=== PATIENT | male | born 1950 | race Caucasian/White ===

== ENCOUNTER 2019-02-28 15:10 | Inpatient (IN) | payer MEDICARE, MEDICAID ==
[~2019-02-28] VITALS: Ht 167.6 cm; Wt 72.6 kg
[2019-02-28] MEDS ORDERED: SODIUM CHLORIDE 0.9% 1,000 ML IV ONE (15:39)
[2019-02-28] MEDS ORDERED: ONDANSETRON HCL 4MG/2ML INJ IV STA (15:39)
[2019-02-28] MEDS ORDERED: LEVETIRACETAM 1000MG/100ML 100 ML IV ONE (15:45)
[2019-02-28 17:57] LABS: BASOPHILS % 0.5 % (0.0-2.0); EOSINOPHILS % 4.6 % (0.0-5.0); HEMATOCRIT. 35.8 % (42.0-52.0); HEMOGLOBIN. 11.9 g/dL (14.0-18.0); LYMPHOCYTES % 22.6 % (20.0-50.0); MEAN CORPUSCULAR VOLUME 87.3 fL (80.0-94.0); MEAN PLATELET VOLUME 9.6 fl (7.4-10.4); MONOCYTES % 8.3 % (2.0-8.0); PLATELET 148 x1000/uL (130-400)
[2019-02-28 17:58] LABS: CHLORIDE 108 mEq/L (98-107)
[2019-02-28 18:06] LABS: ETHANOL BLOOD < 10 mg/dL
[2019-02-28 19:35] LABS: CLARITY URINE CLEAR (CLEAR); COLOR URINE YELLOW (YELLOW); KETONES URINE NEGATIVE (NEGATIVE); LEUKOCYTE ESTERASE URINE NEGATIVE (NEGATIVE); NITRITE URINE NEGATIVE (NEGATIVE); OCCULT BLOOD URINE NEGATIVE (NEGATIVE); PROTEIN URINE TRACE (NEGATIVE); SPECIFIC GRAVITY URINE 1.021 (1.005-1.030); UROBILINOGEN URINE 0.2 E.U./dL (0.2-1.0)
[2019-02-28 20:01] LABS: *AMPHETAMINES SCREEN URINE NEGATIVE (NEGATIVE); *BARBITURATES SCREEN URINE NEGATIVE (NEGATIVE); *BENZODIAZEPINES SCREEN URINE NEGATIVE (NEGATIVE); *COCAINE SCREEN URINE NEGATIVE (NEGATIVE); METHADONE URINE SCREEN NEGATIVE (NEGATIVE); OPIATES URINE SCREEN NEGATIVE (NEGATIVE)
[2019-02-28 20:03] LABS: CANNABINOID URINE SCREEN NEGATIVE (NEGATIVE); PHENCYCLIDINE URINE SCREEN NEGATIVE (NEGATIVE)
[2019-02-28 23:00] VITALS: BP 125/63
[2019-02-28] MEDS ORDERED: TOPUD PO (23:47)
[2019-02-28] MEDS ORDERED: CLON-457 PO (23:48)
[2019-02-28] MEDS ORDERED: OLAN5TAB39 PO (23:49)
[2019-02-28 23:50] VITALS: BP 126/63
[2019-02-28] MEDS ORDERED: ZYPREXA IM (23:52)
[2019-02-28] MEDS ORDERED: ZOLP5TAB2 PO (23:53)
[2019-02-28] MEDS ORDERED: LORA1TAB PO (23:53)
[2019-02-28] MEDS ORDERED: PANT40SU PO (23:54)
[2019-02-28] MEDS ORDERED: ASPI-1393 PO (23:55)
[2019-02-28] MEDS ORDERED: AMLO5TAB4 PO (23:57)
[2019-02-28] MEDS ORDERED: METO1TAB41 PO (23:57)
[2019-02-28] MEDS ORDERED: PHENYTOIN PO (23:59)
[2019-03-01] MEDS ORDERED: SENN-23 PO
[2019-03-01] MEDS ORDERED: ZONI100C45 PO (00:01)
[2019-03-01] MEDS ORDERED: ATOR20TA65 PO (00:02)
[2019-03-01] MEDS ORDERED: ACETAMINOPHEN 325MG TABLET PO PRN ×2 (00:30→11:45)
[2019-03-01] MEDS ORDERED: CLONIDINE 0.1MG TABLET PO PRN (00:30)
[2019-03-01 04:00] VITALS: BP 126/63
[2019-03-01] MEDS ORDERED: PANTOPRAZOLE 40MG DR TABLET PO SCH (06:45)
[2019-03-01 08:00] VITALS: BP_SYST 118; BP_SYST 135; BP_DIAS 63; BP_DIAS 85
[2019-03-01] MEDS: ASPIRIN 81MG TABLET PO SCH ×2 (09:00→09:19)
[2019-03-01] MEDS: OLANZAPINE 5MG TABLET PO SCH ×2 (09:00→09:19)
[2019-03-01] MEDS ORDERED: ENOXAPARIN 40MG/0.4ML SYR SUBCUT SCH (09:00)
[2019-03-01] MEDS: SENNOSIDES 8.6MG TABLET PO SCH ×2 (09:00→09:19)
[2019-03-01] MEDS: METOPROLOL TARTRATE 100MG TABLET PO SCH ×2 (09:00→09:19)
[2019-03-01] MEDS: AMLODIPINE 5MG TABLET PO SCH ×2 (09:00→09:20)
[2019-03-01] MEDS: ZONISAMIDE 100MG CAPSULE PO SCH ×2 (09:18→17:00)
[2019-03-01] MEDS: PHENYTOIN SODIUM EXTENDED 100MG CAPSULE PO SCH ×2 (09:19→18:02)
[2019-03-01] MEDS ORDERED: ZYPREXA 5 MG IM SCH (11:45)
[2019-03-01] MEDS ORDERED: HYDROCHLOROTHIAZ PO SCH (11:45)
[2019-03-01] MEDS ORDERED: ASPIRIN 81MG EC TABLET PO SCH (11:45)
[2019-03-01] MEDS ORDERED: ZOLPIDEM TARTRATE 5MG TABLET PO PRN (11:45)
[2019-03-01] MEDS ORDERED: [UNRECOGNIZED DRUG - OTHER] PO SCH (11:45)
[2019-03-01] MEDS ORDERED: MEDICATION NOT ON FORMULARY EA (Pantoprazole Sodium (Protonix) 40 MG) PO SCH (11:45)
[2019-03-01] MEDS ORDERED: AMLODIPINE 5MG TABLET PO SCH (11:45)
[2019-03-01] MEDS ORDERED: ZONISAMIDE 100MG CAPSULE PO SCH (11:45)
[2019-03-01] MEDS ORDERED: PHENYTOIN 100 MG PO SCH (11:45)
[2019-03-01] MEDS ORDERED: MEDICATION NOT ON FORMULARY EA (Clonidine HCl (Clonidine HCl ER) 0.1 MG) PO SCH (11:45)
[2019-03-01] MEDS ORDERED: METOPROLOL SU PO SCH (11:45)
[2019-03-01] MEDS ORDERED: LORAZEPAM 1MG TABLET PO PRN (11:45)
[2019-03-01] MEDS ORDERED: OLANZAPINE 5MG TABLET ODT PO SCH (11:45)
[2019-03-01] MEDS ORDERED: SENNOSIDES/DOCUSATE SOD 8.6/50MG TABLET PO SCH ×2 (11:45→17:00)
[2019-03-01 11:59] VITALS: BP 115/65
[2019-03-01] MEDS ORDERED: OLANZAPINE 10 MG/VIAL IM PRN (12:30)
[2019-03-01] MEDS ORDERED: HYDROCHLOROTHIAZIDE 12.5MG CAPSULE PO SCH ×2 (14:00→17:00)
[2019-03-01 16:00] VITALS: BP 104/60
[2019-03-01 16:39] LABS: CHLORIDE 105 mEq/L (98-107)
[2019-03-01 20:00] VITALS: BP 123/73
[2019-03-01 20:49] LABS: BASOPHILS % 0.6 % (0.0-2.0); EOSINOPHILS % 3.1 % (0.0-5.0); HEMATOCRIT. 36.1 % (42.0-52.0); MEAN CORPUSCULAR HEMOGLOBIN 29.1 pg (28.0-32.0); MEAN CORPUSCULAR VOLUME 87.9 fL (80.0-94.0); NEUTROPHILS % 65.3 % (40.0-76.0); PLATELET 147 x1000/uL (130-400); RED BLOOD CELL COUNT 4.11 mill/uL (4.7-6.1); RED CELL DISTRIBUTION WIDTH 15.7 % (11.6-14.6)
[2019-03-01] MEDS ORDERED: ATORVASTATIN CALCIUM 20MG TABLET PO SCH ×2 (21:00)
[2019-03-01 22:55] VITALS: BP 119/71
[2019-03-02 00:28] VITALS: BP 119/71
== END 2019-03-02 00:32 | DRG 53 ==
LOC: ER 15:10 → EDBEDREQ 20:29 → EDBEDREQTM 20:29 → ENRESERV 20:38 → 5WST 22:23
PROVIDERS: ADMIT Family Medicine; ATTEND Family Medicine
DX: G40.909 Epilepsy, unspecified, not intractable, without status epilepticus (principal); G93.41 Metabolic encephalopathy; E87.8 Other disorders of electrolyte and fluid balance, not elsewhere classified; F03.90 Unspecified dementia, unspecified severity, without behavioral disturbance, psychotic disturbance, mood disturbance, and anxiety; F20.9 Schizophrenia, unspecified; F41.9 Anxiety disorder, unspecified; G47.00 Insomnia, unspecified; I10 Essential (primary) hypertension; I25.10 Atherosclerotic heart disease of native coronary artery without angina pectoris; K21.9 Gastro-esophageal reflux disease without esophagitis; Z91.14 Patient's other noncompliance with medication regimen; Z79.899 Other long term (current) drug therapy; Z68.25 Body mass index [BMI] 25.0-25.9, adult
CPT/HCPCS: 36415; 80053; 80305; 80320; 81003; 83880; 84484; 85025; 93005; 97161; 99285; J1953; J2405; J7030; G0480

== ENCOUNTER 2019-03-02 10:24 | Inpatient (IN) | payer MEDICARE, MEDICAID ==
[~2019-03-02] VITALS: Ht 167.6 cm; Wt 72.6 kg
[~2019-03-02 10:24] MED LIST: AMLO5TAB4 PO; ASPI-1393 PO; ATOR20TA65 PO; CLON-457 PO; LORA1TAB PO; METO1TAB41 PO; OLAN5TAB39 PO; PANT40SU PO; PHENYTOIN PO; SENN-23 PO; TOPUD PO; ZOLP5TAB2 PO; ZONI100C45 PO; ZYPREXA IM
[2019-03-02] MEDS ORDERED: SODIUM CHLORIDE 0.9% 1,000 ML IV ONE ×2 (20:07)
[2019-03-02] MEDS ORDERED: BACITRACIN ZINC OINT UDPKT TOP ONE (20:15)
[2019-03-02] MEDS ORDERED: LEVETIRACETAM 500MG PREMIX 100 ML IV ONE (20:15)
[2019-03-02] MEDS ORDERED: TETANUS, DIPHTHERIA, PERTUSSIS VAC/PF 0.5ML (>7YR OLD) IM ONE (20:15)
[2019-03-02 21:24] LABS: BASOPHILS % 0.5 % (0.0-2.0); EOSINOPHILS % 4.1 % (0.0-5.0); HEMATOCRIT. 40.6 % (42.0-52.0); HEMOGLOBIN. 13.5 g/dL (14.0-18.0); LYMPHOCYTES % 26.6 % (20.0-50.0); MEAN CORPUSCULAR VOLUME 87.4 fL (80.0-94.0); MEAN PLATELET VOLUME 9.8 fl (7.4-10.4); MONOCYTES % 7.2 % (2.0-8.0); NEUTROPHILS % 61.6 % (40.0-76.0); PLATELET 156 x1000/uL (130-400); RED BLOOD CELL COUNT 4.65 mill/uL (4.7-6.1); RED CELL DISTRIBUTION WIDTH 15.9 % (11.6-14.6)
[2019-03-02 21:31] LABS: CHLORIDE 107 mEq/L (98-107)
[2019-03-02 21:36] LABS: PARTIAL THROMBOPLASTIN TIME 28.9 sec (23.4-31.0); PROTHROMBIN TIME 10.2 sec (9.6-11.0)
[2019-03-02 21:38] LABS: ETHANOL BLOOD < 10 mg/dL
[2019-03-02 21:39] LABS: CREATINE KINASE 119 IU/L (39-308)
[2019-03-02 21:42] LABS: CARBAMAZEPINE < 0.5 ug/mL (4-12); VALPROIC ACID < 3.0 ug/mL (50-100)
[2019-03-02 21:43] LABS: PHENOBARBITAL < 2.1 ug/mL (15.0-40.0)
[2019-03-02 22:38] LABS: CLARITY URINE CLEAR (CLEAR); COLOR URINE YELLOW (YELLOW); KETONES URINE NEGATIVE (NEGATIVE); LEUKOCYTE ESTERASE URINE NEGATIVE (NEGATIVE); NITRITE URINE NEGATIVE (NEGATIVE); OCCULT BLOOD URINE NEGATIVE (NEGATIVE); PROTEIN URINE NEGATIVE (NEGATIVE); UROBILINOGEN URINE 0.2 E.U./dL (0.2-1.0)
[2019-03-02 22:50] LABS: *AMPHETAMINES SCREEN URINE NEGATIVE (NEGATIVE); *BARBITURATES SCREEN URINE NEGATIVE (NEGATIVE); *BENZODIAZEPINES SCREEN URINE NEGATIVE (NEGATIVE); *COCAINE SCREEN URINE NEGATIVE (NEGATIVE)
[2019-03-02 22:51] LABS: CANNABINOID URINE SCREEN NEGATIVE (NEGATIVE); METHADONE URINE SCREEN NEGATIVE (NEGATIVE); OPIATES URINE SCREEN NEGATIVE (NEGATIVE); PHENCYCLIDINE URINE SCREEN NEGATIVE (NEGATIVE)
[2019-03-02] MEDS ORDERED: MAGNESIUM/ALUMINUM HYDROXIDE/SIMETHICONE 30ML UDC PO PRN (23:30)
[2019-03-02] MEDS ORDERED: ACETAMINOPHEN 325MG TABLET PO PRN (23:30)
[2019-03-02] MEDS ORDERED: IPRATROPIUM/ALBUTEROL 0.5-3(2.5)MG/3ML NEB NEB PRN (23:30)
[2019-03-02] MEDS ORDERED: HYDROCODONE/ACETAMINOPHEN 5/325MG TABLET PO PRN (23:30)
[2019-03-02] MEDS ORDERED: ONDANSETRON HCL 4MG/2ML INJ IV PRN (23:30)
[2019-03-02] MEDS ORDERED: DOCUSATE SODIUM 100MG CAPSULE PO PRN (23:30)
[2019-03-02] MEDS ORDERED: CLONIDINE 0.1MG TABLET PO PRN (23:30)
[2019-03-03 02:15] VITALS: BP 134/74
[2019-03-03 04:00] VITALS: BP_SYST 109; BP_SYST 132; BP_DIAS 70; BP_DIAS 82
[2019-03-03 08:00] VITALS: BP_SYST 103; BP_SYST 127; BP_DIAS 70; BP_DIAS 74
[2019-03-03] MEDS: ENOXAPARIN 40MG/0.4ML SYR SUBCUT SCH ×2 (08:42→08:49)
[2019-03-03 12:00] VITALS: BP 132/97
[2019-03-03] MEDS ORDERED: ZOLPIDEM TARTRATE 5MG TABLET PO PRN (14:30)
[2019-03-03] MEDS ORDERED: PHENYTOIN SODIUM EXTENDED 100MG CAPSULE PO NR (14:45)
[2019-03-03 16:00] VITALS: BP 116/80
[2019-03-03] MEDS: SENNOSIDES/DOCUSATE SOD 8.6/50MG TABLET PO SCH ×2 (17:00→17:55)
[2019-03-03] MEDS: ZONISAMIDE 100MG CAPSULE PO SCH (17:55)
[2019-03-03] MEDS: LORAZEPAM 1MG TABLET PO PRN (18:29)
[2019-03-03 20:00] VITALS: BP 126/77
[2019-03-03] MEDS: ATORVASTATIN CALCIUM 20MG TABLET PO SCH (21:37)
[2019-03-04] VITALS: BP 125/76
[2019-03-04 00:42] LABS: LDL CHOLESTEROL 68 mg/dL (5-100)
[2019-03-04 00:44] LABS: CREATINE KINASE 91 IU/L (39-308); HDL CHOLESTEROL 52 mg/dL (40-59)
[2019-03-04 00:46] LABS: CREATINE KINASE MB FRACTION 2.1 ng/mL (0.5-3.6)
[2019-03-04 04:00] VITALS: BP 97/41
[2019-03-04 07:33] LABS: FOLIC ACID (FOLATE) SERUM 16.1 ng/mL (>5.38)
[2019-03-04 08:00] VITALS: BP 118/74
[2019-03-04] MEDS: ENOXAPARIN 40MG/0.4ML SYR SUBCUT SCH (09:00)
[2019-03-04] MEDS: AMLODIPINE 5MG TABLET PO SCH ×2 (09:00→09:25)
[2019-03-04] MEDS: PHENYTOIN SODIUM EXTENDED 100MG CAPSULE PO SCH ×4 (09:00→17:00)
[2019-03-04] MEDS: ZONISAMIDE 100MG CAPSULE PO SCH ×3 (09:00→17:00)
[2019-03-04] MEDS: SENNOSIDES/DOCUSATE SOD 8.6/50MG TABLET PO SCH ×3 (09:00→17:00)
[2019-03-04] MEDS: OLANZAPINE 5MG TABLET PO SCH ×2 (09:00→09:24)
[2019-03-04] MEDS: ASPIRIN 81MG EC TABLET PO SCH ×2 (09:00→09:24)
[2019-03-04 12:00] VITALS: BP 123/72
[2019-03-04 16:00] VITALS: BP 145/98
[2019-03-04 16:57] LABS: BASOPHILS % 0.5 % (0.0-2.0); HEMATOCRIT. 38.5 % (42.0-52.0); HEMOGLOBIN. 12.8 g/dL (14.0-18.0); LYMPHOCYTES % 31.1 % (20.0-50.0); MEAN CORPUSCULAR HEMOGLOBIN 28.9 pg (28.0-32.0); MEAN CORPUSCULAR VOLUME 87.3 fL (80.0-94.0); MEAN PLATELET VOLUME 10.1 fl (7.4-10.4); MONOCYTES % 8.4 % (2.0-8.0); PLATELET 138 x1000/uL (130-400); RED BLOOD CELL COUNT 4.41 mill/uL (4.7-6.1); RED CELL DISTRIBUTION WIDTH 15.9 % (11.6-14.6)
[2019-03-04 20:00] VITALS: BP_SYST 136; BP_SYST 138; BP_SYST 160; BP_DIAS 71; BP_DIAS 77; BP_DIAS 81
[2019-03-04] MEDS: LORAZEPAM 1MG TABLET PO PRN (21:25)
[2019-03-04] MEDS: ATORVASTATIN CALCIUM 20MG TABLET PO SCH (21:25)
[2019-03-05] VITALS: BP 124/57
[2019-03-05 04:00] VITALS: BP_SYST 154; BP_SYST 156; BP_DIAS 78
[2019-03-05 08:00] VITALS: BP 152/93
[2019-03-05] MEDS: SENNOSIDES/DOCUSATE SOD 8.6/50MG TABLET PO SCH ×2 (09:06→16:30)
[2019-03-05] MEDS: ASPIRIN 81MG EC TABLET PO SCH (09:06)
[2019-03-05] MEDS: PHENYTOIN SODIUM EXTENDED 100MG CAPSULE PO SCH ×3 (09:06→16:30)
[2019-03-05] MEDS: ZONISAMIDE 100MG CAPSULE PO SCH ×2 (09:07→16:30)
[2019-03-05] MEDS: FERROUS SULFATE 325MG TABLET PO SCH (09:07)
[2019-03-05] MEDS: AMLODIPINE 5MG TABLET PO SCH (09:07)
[2019-03-05] MEDS: ENOXAPARIN 40MG/0.4ML SYR SUBCUT SCH (09:08)
[2019-03-05] MEDS: OLANZAPINE 5MG TABLET PO SCH (09:13)
[2019-03-05 12:00] VITALS: BP 158/77
[2019-03-05 16:00] VITALS: BP 136/73
[2019-03-05 20:00] VITALS: BP_SYST 130; BP_SYST 140; BP_DIAS 61; BP_DIAS 64
[2019-03-05] MEDS: ATORVASTATIN CALCIUM 20MG TABLET PO SCH (20:12)
[2019-03-06] VITALS (9 sets, daily range): BP systolic 116–133; BP diastolic 61–82
[2019-03-06] MEDS ORDERED: PHEN100C4 PO (07:38)
[2019-03-06] MEDS ORDERED: FERR325T23 PO (07:38)
[2019-03-06] MEDS: PHENYTOIN SODIUM EXTENDED 100MG CAPSULE PO SCH ×3 (08:53→16:25)
[2019-03-06] MEDS: ZONISAMIDE 100MG CAPSULE PO SCH ×2 (08:53→16:25)
[2019-03-06] MEDS: ENOXAPARIN 40MG/0.4ML SYR SUBCUT SCH (08:53)
[2019-03-06] MEDS: FERROUS SULFATE 325MG TABLET PO SCH (08:54)
[2019-03-06] MEDS: OLANZAPINE 5MG TABLET PO SCH (08:54)
[2019-03-06] MEDS: ASPIRIN 81MG EC TABLET PO SCH (08:54)
[2019-03-06] MEDS: AMLODIPINE 5MG TABLET PO SCH (08:55)
[2019-03-06] MEDS: SENNOSIDES/DOCUSATE SOD 8.6/50MG TABLET PO SCH ×2 (08:57→16:10)
== END 2019-03-06 21:15 | DRG 53 ==
LOC: ER 10:24 → 7WST 23:05 → EDBEDREQTM 23:07 → EDBEDREQ 23:07 → ENRESERV 23:20 → 7WST 03-04 21:04
PROVIDERS: ADMIT Internal Medicine; ATTEND Internal Medicine
DX: G40.419 Other generalized epilepsy and epileptic syndromes, intractable, without status epilepticus (principal); S09.90XA Unspecified injury of head, initial encounter; F20.9 Schizophrenia, unspecified; D64.9 Anemia, unspecified; F41.1 Generalized anxiety disorder; K43.9 Ventral hernia without obstruction or gangrene; W19.XXXA Unspecified fall, initial encounter; I10 Essential (primary) hypertension; J98.11 Atelectasis; K40.90 Unilateral inguinal hernia, without obstruction or gangrene, not specified as recurrent; K21.9 Gastro-esophageal reflux disease without esophagitis; R41.89 Other symptoms and signs involving cognitive functions and awareness; F03.90 Unspecified dementia, unspecified severity, without behavioral disturbance, psychotic disturbance, mood disturbance, and anxiety; Z86.73 Personal history of transient ischemic attack (TIA), and cerebral infarction without residual deficits; Z95.0 Presence of cardiac pacemaker; Y99.8 Other external cause status; Y93.89 Activity, other specified; Y92.89 Other specified places as the place of occurrence of the external cause; Z79.899 Other long term (current) drug therapy; Z79.82 Long term (current) use of aspirin
CPT/HCPCS: 36415; 71045; 80053; 80061; 80156; 80165; 80184; 80185; 80305; 80320; 81003; 82140; 82550; 82553; 82607; 82728; 82746; 83540; 83550; 83880; 84443; 84484; 85025; 90715; 93005; 93306; 93880; 96365; 99285; J1650; J1953; J7030; G0480

== ENCOUNTER 2019-05-01 11:21 | Emergency (ER) | payer MEDICARE, MEDICAID ==
[~2019-05-01] VITALS: Ht 177.8 cm; Wt 77.0 kg
[~2019-05-01 11:21] MED LIST changes: +ACET-2708 MT; -ASPI-1393 PO; +ASPI-1497 PO; -ATOR20TA65 PO; +DOCU-150 MT; +ENOX40DI8 SQ; +FERR325T23 PO; +HYDR-4001 PO; +IPRA3AMP9 HHN; +LORA-250 PO; +MAGN30OR PO; -METO1TAB41 PO; -OLAN5TAB39 PO; +ONDA4TAB5 MT; -PANT40SU PO; +PHEN100C4 PO; -PHENYTOIN PO; -SENN-23 PO; -ZOLP5TAB2 PO; -ZYPREXA IM
[2019-05-01] MEDS ORDERED: LORAZEPAM 2MG/ML CPJ IV ONE (11:45)
[2019-05-01 13:15] LABS: BASOPHILS % 0.5 % (0.0-2.0); HEMATOCRIT. 34.7 % (42.0-52.0); HEMOGLOBIN. 11.6 g/dL (14.0-18.0); LYMPHOCYTES % 18.4 % (20.0-50.0); MEAN CORPUSCULAR HEMOGLOBIN 29.5 pg (28.0-32.0); MEAN CORPUSCULAR VOLUME 88.2 fL (80.0-94.0); MEAN PLATELET VOLUME 9.2 fl (7.4-10.4); MONOCYTES % 7.4 % (2.0-8.0); NEUTROPHILS % 68.7 % (40.0-76.0); PLATELET 157 x1000/uL (130-400); RED BLOOD CELL COUNT 3.94 mill/uL (4.7-6.1); RED CELL DISTRIBUTION WIDTH 15.8 % (11.6-14.6)
[2019-05-01 13:26] LABS: CHLORIDE 109 mEq/L (98-107)
[2019-05-01] MEDS ORDERED: PHENYTOIN SODIUM 1,000 MG in SODIUM CHLORIDE 0.9% 100 ML IV ONE (14:30)
[2019-05-01 18:18] VITALS: BP 128/86
== END 2019-05-01 18:20 | disposition home or self-care (01) ==
LOC: ER 11:21
DX: G40.909 Epilepsy, unspecified, not intractable, without status epilepticus (principal); Z91.14 Patient's other noncompliance with medication regimen; I10 Essential (primary) hypertension; E78.5 Hyperlipidemia, unspecified; F20.9 Schizophrenia, unspecified; Z91.81 History of falling
CPT/HCPCS: 36415; 70450; 71045; 80053; 80185; 82962; 84484; 85025; 93005; 96374; 96375; 99285; J1165; J2060; J7050